=== PATIENT | female | born 1955 | race Caucasian/White ===

== ENCOUNTER → 2021-02-09 | Day surgery (SDC) | payer BC ==
[~2021-02-09] VITALS: Ht 165.1 cm; Wt 163.0 kg
[~2021-02-09] MED LIST: ALBU2.5V8 INH; ASPI-630 PO; CARV6.2511 PO; CHOL5000 PO; COLE625T12 PO; DEXL30CA PO; FLUT1BLS9 IH; IV RINGERS,LACTATED 1000ML 1,000 ML IV SCH; LEVO75TA5 PO; LIDOCAINE 2% PF 5 ML VIAL. ONE; LOSA25TA54 PO; MELA3TAB4 PO; MONT10TA49 PO; PROPOFOL 10 MG/ML (20ML) VIAL. IV ONE; VORT20TA PO
[2021-02-09 09:30] VITALS: BP 141/60
[2021-02-09 11:00] VITALS: BP 93/50
--- NOTE | 2021-02-12 14:07 | PATHOLOGY ---
[facility] Accession Number: [id number] . 01 Material submitted: . colon - TRANSVERSE COLON POLYP BIOPSY. Modifiers: transverse . 01 Clinical history: . + COLOGUARD COLON . 02 Diagnosis: Colon biopsies, transverse colon polyp: - Hyperplastic polyp/prominent mucosal fold. (JPM:freedom; 02/12/2021) QMS 02/12/2021 1157 Local . 02 Comment: There are no adenomatous changes or evidence of malignancy. (JPM:freedom; 02/12/2021) . 02 Electronically signed: . Basim Eric MD, Pathologist NPI- [id number] . 01 Gross description: . The specimen is received in formalin, labeled "Day Delacruz, transverse colon polyp BX". It consists of a phillips polypoid soft tissue fragment measuring 0.3 x 0.3 x 0.2 cm. The specimen is entirely submitted between sponges in A1. (MRF; 02/09/2021) MFE/MFE 02/09/20216 Local . 02 Pathologist provided ICD-10: K63.5 . 02 CPT . 689880 Specimen Comment: A courtesy copy of this report has been sent to [phone] Specimen Comment: Report sent to DR. MORA Performed at: 01 [facility] [address], [place] [id number] MD Naveen Kim MD Phone: [phone] Performed at: 02 [facility] [address] [place], [place] [id number] MD Basim Eric MD Phone: [phone]
== END | disposition home or self-care (01) ==
LOC: ENDOS 08:42
PROVIDERS: ATTEND Internal Medicine Gastroenterology
DX: R19.5 Other fecal abnormalities (principal); K64.0 First degree hemorrhoids; K57.30 Diverticulosis of large intestine without perforation or abscess without bleeding; K63.5 Polyp of colon; K63.89 Other specified diseases of intestine; I50.9 Heart failure, unspecified; E78.00 Pure hypercholesterolemia, unspecified; E03.9 Hypothyroidism, unspecified; K21.9 Gastro-esophageal reflux disease without esophagitis; E66.3 Overweight; G47.30 Sleep apnea, unspecified; J45.909 Unspecified asthma, uncomplicated; F32.9 Major depressive disorder, single episode, unspecified; Z79.82 Long term (current) use of aspirin; Z79.899 Other long term (current) drug therapy; Z98.890 Other specified postprocedural states; Z88.0 Allergy status to penicillin
CPT/HCPCS: 45380; J2704; 88305